=== PATIENT | female | born 1995 | race Caucasian/White ===

== ENCOUNTER 2020-05-20 13:16 | Emergency (ER) | payer MEDICAID ==
[~2020-05-20] VITALS: Ht 162.6 cm; Wt 65.8 kg
[2020-05-20 14:52] VITALS: Ht 162.6 cm; Wt 65.8 kg
[2020-05-20 15:15] LABS: UA SPECIFIC GRAVITY 1.015 (1.005-1.035); microscopic required? YES; urine erythrocyte TRACE (NEGATIVE)
[2020-05-20 15:38] LABS: BASOPHIL % 0.1 % (0-2); PLATELET COUNT 276 x10^3mcL (130-400); RED CELL DISTRIBUTION WIDTH 13.4 % (11.5-14.5)
[2020-05-20 15:45] LABS: AMPHETAMINE QUAL UR POSITIVE (See below)
[2020-05-20 16:18] LABS: T3 TOTAL 1.44 ng/mL
[2020-05-20 16:59] LABS: FREE T4 1.19 ng/dL (0.76-1.46); FREE THYROXINE INDEX 3.1 ug/dL (1.4-4.5)
[2020-05-20 17:21] LABS: CARBON DIOXIDE 27.1 mmol/L (21-32); CHLORIDE SERUM 104 mmol/L (98-107); CREATININE SERUM 0.9 mg/dL (0.6-1.0); GFR1 > 60 mL/min; GLUCOSE SERUM 93 mg/dL (74-106); SODIUM SERUM 141 mmol/L (136-145)
[2020-05-20 17:26] LABS: ALBUMIN 4.1 g/dL (3.4-5.0); ALKALINE PHOSPHATASE 81 U/L (46-116); ALT/SGPT 48 U/L (14-59); AST/SGOT 21 U/L (15-37); CHOLESTEROL 145 mg/dL (<200); CHOLESTEROL/HDL RATIO 2.8; HDL CHOLESTEROL 51 mg/dL (40-60); LIPASE 62 IU/L (73-393); TOTAL PROTEIN, SERUM 8.1 g/dL (6.4-8.2); TRIGLYCERIDES 52 mg/dL (<150)
[2020-05-20 18:00] VITALS: BP 116/79
== END 2020-05-20 18:00 | disposition home or self-care (01) ==
LOC: ED 13:16
PROVIDERS: Specialist
DX: F15.10 Other stimulant abuse, uncomplicated (principal); R55 Syncope and collapse; R00.2 Palpitations
CPT/HCPCS: 83880; 84439; G0480; J2060; Q0092

== ENCOUNTER 2020-06-11 14:05 | Emergency (ER) | payer MEDICAID ==
[~2020-06-11] VITALS: Ht 162.6 cm; Wt 70.8 kg
[2020-06-11 14:23] VITALS: BP 133/86; Ht 162.6 cm; Wt 70.8 kg
== END 2020-06-11 16:14 | disposition left against medical advice (07) ==
LOC: ED 14:05
DX: Z53.21 Procedure and treatment not carried out due to patient leaving prior to being seen by health care provider (principal)